=== PATIENT | female | born 1980 | race Caucasian/White ===

== ENCOUNTER 2016-08-28 00:35 | Emergency (ER) | payer MEDICAID, OTHER ==
[~2016-08-28] VITALS: Ht 157.5 cm; Wt 76.0 kg
[~2016-08-28 00:35] MED LIST: CIPR500T4 PO; HYDR-3498 PO; MTF1000T PO; ONDA4TAB35 PO; PHEN-538 PO
[2016-08-28 00:38] VITALS: Ht 157.5 cm; Wt 76.0 kg
[2016-08-28] MEDS ORDERED: TETRACAINE 0.5% 4 ML OPH BOTH EYES ONE (01:00)
[2016-08-28] MEDS ORDERED: FLUORESCEIN STRIP RIGHT EYE ONE (01:00)
[2016-08-28] MEDS ORDERED: TBR.3OO RIGHT EYE (01:26)
[2016-08-28] MEDS ORDERED: TOBR5DRO6 RIGHT EYE (01:27)
[2016-08-28] MEDS ORDERED: IBUP-1542 PO (02:17)
--- NOTE | 2016-08-28 02:27 | RADRPT ---
PROCEDURE: Ultrasound of the orbits CLINICAL INDICATION: Right eye pain TECHNIQUE: Smith scale ultrasound of both eyes was performed with a high frequency linear transduce r. COMPARISON: None FINDINGS: No abnormality is seen. The lens of the appears grossly intact. No abnormality of the right and a is appreciated. No evidence for vitreous hemorrhage or debris. IMPRESSION: No ultrasound evidence for retinal detachment or vitreous hemorrhage. Physician Iain Date Time Electronically viewed and signed by Ekaterina Parisi Physician on 08/28/2016 02:27 LE/
--- NOTE | 2016-08-29 19:34 | ERD ---
ER Documentation Chief Complaint Date/Time DATE: 08/29/16 TIME: 19:29 Chief Complaint right eye pain x 2 days worst today HPI This patient is a 36-year-old female with history of type 2 diabetes presenting to the emergency department for right eye pain ongoing for the past 2 days. Symptoms are worsening. The patient is wearing an eye patch which she bought [id number]. The patient has photophobia. The patient wears no contacts or no glasses. She has never had these symptoms in the past. The patient reports mild vision change. She took Excedrin with mild relief of symptoms. Patient denies discharge, fevers, or other symptoms. ROS All systems reviewed and are negative except as per history of present illness. Medications Home Meds Active Scripts Ibuprofen* (Motrin*) 600 Mg Tab, 600 MG PO Q6, #30 TAB Prov:CHEVY HELTON PA-C 08/28/16 Tobramycin Sulfate* (Tobramycin Sulfate*) 0.3% - 5 Ml Drops, 1 DROP RIGHT EYE QID for 7 Days, #1 BOTTLE Prov:CHEVY HELTON PA-C 08/28/16 Tobramycin Sulfate* (Tobrex*) 3.5 Gm Oint..gm., 1 APPLIC RIGHT EYE TID for 7 Days, #1 EA Prov:CHEVY HELTON PA-C 08/28/16 Ondansetron Hcl* (Zofran* ODT) 4 mg -ODT Tab.disper, 4 MG PO Q8 Y for NAUSEA AND /OR VOMITING, #30 TAB Prov:TRES ARZATE NP 10/19/15 Hydrocodone Bit-Acetaminophen* ([place]*) 5-325 Mg Tab, 1 TAB PO Q6 Y for PAIN, # 20 TAB Prov:TRES ARZATE NP 10/19/15 Phenazopyridine Hcl* (Pyridium*) 200 Mg Tab, 200 MG PO TID Y for URINARY PAIN, # 6 TAB Prov:TRES ARZATE [employer]ER 10/19/15 Ciprofloxacin Hcl* (Ciprofloxacin Hcl*) 500 Mg Tablet, 500 MG PO BID for 10 Days , TAB Prov:TRES ARZATE NP 10/19/15 Reported Medications Metformin* (Glucophage*) 1,000 Mg Tablet, 1000 MG PO BID 5/2/13 Allergies Allergies: Coded Allergies: No Known Allergy (Verified , 08/30/12) PMhx/Soc History of Surgery: Yes (C SECTION X 2 ) Anesthesia Reaction: No Hx Neurological Disorder: No Hx Respiratory Disorders: No Hx Cardiac Disorders: No Hx Psychiatric Problems: No Hx Miscellaneous Medical Probl: Yes (DM) Hx Alcohol Use: No Hx Substance Use: No Hx Tobacco Use: No Smoking Status: Never smoker FmHx Noncontributory for chief complaint Physical Exam Vitals Vital Signs Date Time Temp Pulse Resp B/P Pulse Ox O2 Delivery O2 Flow Rate FiO2 08/28/16 00:38 98.3 71 20 145/67 99 Physical Exam Const: The patient is resting comfortably in no acute distress. Head: Atraumatic Eyes: The patient has conjunctival injection of the right eye. The patient is photophobic in the right eye. There is no gross foreign body visualized. ENT: Normal External Ears, Nose and Mouth. Neck: Full range of motion..~ No meningismus. Resp: Clear to auscultation bilaterally Cardio: Regular rate and rhythm, no murmurs Abd: Soft, non tender, non distended. Normal bowel sounds Skin: No petechiae or rashes Back: No midline or flank tenderness Ext: No cyanosis, or edema Neur: Awake and alert Psych: Normal Mood and Affect Results 24 hrs Current Medications Medications (Trade) Dose Ordered Sig/Jacki Route PRN Reason Start Time Stop Time Status Last Admin Dose Admin Tetracaine HCl (Tetracaine 0.5% Steri-Unit Raine) 1 drop ONCE ONCE BOTH EYES 08/28/16 01:00 08/28/16 01:01 DC Fluorescein Sodium ([id number]) 1 strip ONCE ONCE RIGHT EYE 08/28/16 01:00 08/28/16 01:01 DC Procedures/MDM 36-year-old female presents to the emergency department secondary to right eye pain and vision changes. On physical examination there is no obvious foreign body but there is conjunctival injection. Exam with slit lamp is consistent with corneal abrasion. The patient will be treated as an outpatient with a prescription for Cipro drops with close follow-up with ophthalmology. The patient was given information to do so. I have low suspicion for periorbital cellulitis, orbital cellulitis, deep corneal ulcer, dendritic lesion, or other emergent conditions. The patient is to have close follow-up with PCP and specialist. Strict ER return precautions discussed and the patient understands. Eye Exam w/ Wood's lamp: Visual Ross: Intact in all four quadrants bilaterally Lac ducts/glands: No swelling Lids w/ evertion: Normal, no foreign body Conj/[place]: Clear, negative Fluorescein/Estefany's Anterior Chamber: Clear Tonopen readings: Less than 20 Retina exam: No obvious abnormality Cornea: Small corneal ulcer noted at the 6 o'clock position on the eye but no involvement of the pupil. Departure Diagnosis: Primary Impression: Corneal abrasion Additional Impression: Conjunctivitis Condition: Fair Patient Instructions: Corneal Abrasion Referrals: [facility] YOU HAVE RECEIVED A MEDICAL SCREENING EXAM AND THE RESULTS INDICATE THAT YOU DO NOT HAVE A CONDITION THAT REQUIRES URGENT TREATMENT IN THE EMERGENCY DEPARTMENT. FURTHER EVALUATION AND TREATMENT OF YOUR CONDITION CAN WAIT UNTIL YOU ARE SEEN IN YOUR DOCTORS OFFICE WITHIN THE NEXT 1-2 DAYS. IT IS YOUR RESPONSIBILITY TO MAKE AN APPOINTMENT FOR FOLOW-UP CARE. IF YOU HAVE A PRIMARY DOCTOR --you should call your primary doctor and schedule an appointment IF YOU DO NOT HAVE A PRIMARY DOCTOR YOU CAN CALL OUR PHYSICIAN REFERRAL HOTLINE AT IF YOU CAN NOT AFFORD TO SEE A PHYSICIAN YOU CAN CHOSE FROM THE FOLLOWING [facility] [address] [facility]. [facility] [address] [facility]. [facility] [address] [facility] [facility] [address] [facility]. [facility] [address] [facility]. [facility]. [address] Additional Instructions: Follow up with your PCP within the next 1-3 days for a more thorough evaluation and a possible referral to a specialist. Return the the emergency department immediately if symptoms worsen or change. If you have any questions regarding medications, ask your pharmacist or us before you leave. If any adverse reactions, occur while taking your medications, discontinue the treatment and return to the emergency department immediately. If any new or worsening symptoms, uncontrolled fevers, or other unexplained symptoms occur, return to the emergency department immediately. Take your medications as directed, and complete the entire course of treatment. CHEVY HELTON PA-C August 29, 2016 19:34
== END 2016-08-28 02:40 | disposition home or self-care (01) ==
LOC: FTE 00:35
DX: S05.01XA Injury of conjunctiva and corneal abrasion without foreign body, right eye, initial encounter (principal); H10.9 Unspecified conjunctivitis; E11.9 Type 2 diabetes mellitus without complications; X58.XXXA Exposure to other specified factors, initial encounter; Y92.9 Unspecified place or not applicable; Z79.84 Long term (current) use of oral hypoglycemic drugs
CPT/HCPCS: 76536; Z7502; Z7610

== ENCOUNTER 2017-07-16 21:06 | Emergency (ER) | END 2017-07-16 22:27 | disposition home or self-care (01) ==